=== PATIENT | male | born 1990 | race Asian ===

== ENCOUNTER 2024-12-21 00:35 | Emergency (ER) | payer MEDICAID, OTHER ==
[~2024-12-21] VITALS: Ht 175.3 cm; Wt 96.0 kg
[2024-12-21 00:41] VITALS: O2SAT 100
[2024-12-21] MEDS: ONDANSETRON 4MG ODT PO ONE (03:19)
[2024-12-21] MEDS: CHLORDIAZEPOXIDE 25MG CAPSULE PO ONE (03:19)
[2024-12-21 04:40] VITALS: BP 114/67; PULSE 78; RESP 20; TEMP 36.7; O2SAT 95
== END 2024-12-21 04:45 | disposition home or self-care (01) ==
LOC: ER 00:35
DX: F10.939 Alcohol use, unspecified with withdrawal, unspecified (principal); E03.9 Hypothyroidism, unspecified; Y90.9 Presence of alcohol in blood, level not specified
CPT/HCPCS: 99283; Q0162